=== PATIENT | male | born 1955 | race Caucasian/White ===

== ENCOUNTER 2018-01-21 22:08 | Inpatient (IN) | payer BC ==
[~2018-01-21] VITALS: Ht 167.6 cm; Wt 74.5 kg
[2018-01-21 22:19] VITALS: Ht 167.6 cm; Wt 74.5 kg
[2018-01-22] VITALS (7 sets, daily range): BP systolic 99–127; BP diastolic 61–79
[2018-01-22 00:40] LABS: BASOPHIL % 0.6 % (0-2); PLATELET COUNT 216 x10^3mcL (130-400); RED CELL DISTRIBUTION WIDTH 13.6 % (11.5-14.5)
[2018-01-22 00:50] LABS: CALCIUM 8.8 mg/dL (8.5-10.1); CARBON DIOXIDE 26.8 mmol/L (21-32); CHLORIDE SERUM 107 mmol/L (98-107); GFR1 > 60 mL/min; GLUCOSE SERUM 139 mg/dL (74-106); POTASSIUM SERUM 3.8 mmol/L (3.5-5.1); SODIUM SERUM 144 mmol/L (136-145)
[2018-01-22 01:03] LABS: ALBUMIN 3.4 g/dL (3.4-5.0); ALKALINE PHOSPHATASE 102 U/L (46-116); ALT/SGPT 67 U/L (16-63); AST/SGOT 38 U/L (15-37); BILIRUBIN TOTAL 0.8 mg/dL (0.20-1.00); FREE T4 0.92 ng/dL (0.76-1.46); TOTAL PROTEIN, SERUM 6.7 g/dL (6.4-8.2)
[2018-01-22] MEDS ORDERED: TAMSULOSIN HYD0.4 M1 (02:28)
[2018-01-22 02:58] LABS: microscopic required? NO
[2018-01-22 03:41] LABS: urine erythrocyte NEGATIVE (NEGATIVE)
[2018-01-22 04:01] LABS: MAGNESIUM 2.1 mg/dL (1.8-2.4); PHOSPHOROUS 4.3 mg/dL (2.5-4.9)
[2018-01-22 04:20] LABS: CHOLESTEROL/HDL RATIO 5.4
[2018-01-22 05:09] LABS: CALCIUM 8.3 mg/dL (8.5-10.1); CARBON DIOXIDE 28.3 mmol/L (21-32); CHLORIDE SERUM 108 mmol/L (98-107); CREATININE SERUM 0.9 mg/dL (0.7-1.3); GFR1 > 60 mL/min; GLUCOSE SERUM 133 mg/dL (74-106); POTASSIUM SERUM 3.8 mmol/L (3.5-5.1); SODIUM SERUM 142 mmol/L (136-145)
[2018-01-22 05:11] LABS: BASOPHIL % 0.8 % (0-2); PLATELET COUNT 198 x10^3mcL (130-400); RED CELL DISTRIBUTION WIDTH 13.6 % (11.5-14.5)
[2018-01-22 08:59] LABS: AMPHETAMINE QUAL UR NONE DETECTED (NEG <=1000)
== END 2018-01-22 21:15 | disposition home or self-care (01) | DRG 74 ==
LOC: ED 22:08 → DU 01-22 02:25 → EDBEDREQ 01-22 02:26 → DU 01-22 04:03
PROVIDERS: Emergency Medicine; Family Medicine
DX: G90.8 Other disorders of autonomic nervous system (principal); R09.02 Hypoxemia; F41.1 Generalized anxiety disorder; N40.0 Benign prostatic hyperplasia without lower urinary tract symptoms; E02 Subclinical iodine-deficiency hypothyroidism
CPT/HCPCS: 36600; 83880; 84439; 85378; J7030; Q0092

== ENCOUNTER 2018-01-25 10:13 | Emergency (ER) | payer BC ==
[~2018-01-25] VITALS: Ht 167.6 cm; Wt 76.7 kg
[~2018-01-25 10:13] MED LIST: TAMSULOSIN HYD0.4 M1
[2018-01-25 10:18] VITALS: Ht 167.6 cm; Wt 76.7 kg
[2018-01-25 11:50] LABS: BASOPHIL % 0.4 % (0-2); PLATELET COUNT 221 x10^3mcL (130-400); RED CELL DISTRIBUTION WIDTH 13.7 % (11.5-14.5)
[2018-01-25 11:56] LABS: CALCIUM 9.1 mg/dL (8.5-10.1); CARBON DIOXIDE 27.8 mmol/L (21-32); CHLORIDE SERUM 105 mmol/L (98-107); CREATININE SERUM 1.1 mg/dL (0.7-1.3); GFR1 > 60 mL/min; GLUCOSE SERUM 123 mg/dL (74-106); POTASSIUM SERUM 3.6 mmol/L (3.5-5.1); SODIUM SERUM 143 mmol/L (136-145)
[2018-01-25 12:01] LABS: ALBUMIN 3.9 g/dL (3.4-5.0); ALKALINE PHOSPHATASE 92 U/L (46-116); ALT/SGPT 66 U/L (16-63); AST/SGOT 44 U/L (15-37); BILIRUBIN TOTAL 1.41 mg/dL (0.20-1.00); TOTAL PROTEIN, SERUM 7.6 g/dL (6.4-8.2)
[2018-01-25 12:52] LABS: microscopic required? NO
[2018-01-25 13:16] LABS: UA SPECIFIC GRAVITY <=1.005 (1.005-1.035); urine erythrocyte NEGATIVE (NEGATIVE)
[2018-01-25 14:41] VITALS: BP 110/60
== END 2018-01-25 14:41 | disposition home or self-care (01) ==
LOC: ED 10:13
PROVIDERS: Emergency Medicine
DX: J20.9 Acute bronchitis, unspecified (principal)
CPT/HCPCS: 36600; 83880; 87804; J0696; J3490; J7613; J7644; Q0092; Q9967

== ENCOUNTER 2019-04-16 11:40 | Emergency (ER) | payer BC ==
[~2019-04-16] VITALS: Ht 162.6 cm; Wt 79.8 kg
[2019-04-16 11:48] VITALS: BP 110/89; Ht 162.6 cm; Wt 79.8 kg
== END 2019-04-16 13:09 | disposition home or self-care (01) ==
LOC: ED 11:40
DX: S81.811A Laceration without foreign body, right lower leg, initial encounter (principal); F41.9 Anxiety disorder, unspecified; W23.0XXA Caught, crushed, jammed, or pinched between moving objects, initial encounter; Y93.89 Activity, other specified; Y92.810 Car as the place of occurrence of the external cause; Y99.8 Other external cause status
CPT/HCPCS: 90715; J2001

== ENCOUNTER 2019-04-18 16:06 | Emergency (ER) | payer BC ==
[~2019-04-18] VITALS: Ht 165.1 cm; Wt 80.3 kg
[2019-04-18 16:13] VITALS: BP 100/67; Ht 165.1 cm; Wt 80.3 kg
== END 2019-04-18 17:08 | disposition home or self-care (01) ==
LOC: ED 16:06
DX: S81.811D Laceration without foreign body, right lower leg, subsequent encounter (principal); F41.9 Anxiety disorder, unspecified; W22.8XXD Striking against or struck by other objects, subsequent encounter